=== PATIENT | male | born 1935 | race Hispanic/Latino ===

== ENCOUNTER 2016-12-12 10:18 | Day surgery (SDC) | payer MEDICARE ==
--- NOTE | 2016-12-11 12:58 | Anesthesia Consultation ---
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 PATIENT STABLE FOR SURGERY PER NOTE.
[2016-12-11 13:09] LABS: Basophils % (Auto) 2.3 % (0.0-1.8); Eosinophils % (Auto) 3.2 % (0.0-4.3); Hematocrit 40.5 % (35.5-45.6); Hemoglobin 13.8 gm/dl (11.8-15.2); Mean Corpuscular HGB Conc 34 % (32-34); Mean Corpuscular Hemoglobin 33 pg (28-32); Mean Corpuscular Volume 95 fl (84-94); Platelet Count 231 K/mm3 (140-440); Red Blood Count 4.25 M/mm3 (3.65-5.03); Red Cell Distribution Width 14.2 % (13.2-15.2); White Blood Count 6.7 K/mm3 (4.5-11.0)
[2016-12-11 13:39] LABS: Alanine Aminotransferase 30 units/L (7-56); Albumin 3.8 g/dL (3.9-5); Albumin/Globulin Ratio 1.5 %; Alkaline Phosphatase 59 units/L (35-129); Anion Gap 16 mmol/L; BUN/Creatinine Ratio 25.71; Bilirubin,Total 0.8 mg/dL (0.1-1.2); Blood Urea Nitrogen 18 mg/dL (9-20); Calcium 9.1 mg/dL (8.4-10.2); Carbon Dioxide 27 mmol/L (22-30); Chloride 104.5 mmol/L (98-107); Glucose 104 mg/dL (75-100); Potassium 3.8 mmol/L (3.6-5.0); Sodium 144 mmol/L (137-145); Total Protein 6.3 g/dL (6.3-8.2)
[~2016-12-12 10:18] MED LIST: ANCEF/STERILE WATER 2 GM/20 ML IV NR; NACL 0.9% 1000 ML 1,000 ML IV SCH; PEPCID PO NR
[2016-12-12] MEDS ORDERED: DIPRIVAN 10 MG/ML IV ONE (11:56)
[2016-12-12] MEDS ORDERED: XYLOCAINE MPF 2% ONE (11:56)
[2016-12-12] MEDS ORDERED: SUBLIMAZE ONE (11:56)
[2016-12-12] MEDS ORDERED: ePHEDrine SULFATE ONE (12:40)
[2016-12-12] MEDS ORDERED: NEO SYNEPHRINE ONE (12:40)
[2016-12-12] MEDS ORDERED: WATER FOR IRRIG STERILE IR ONE (13:23)
[2016-12-12] MEDS ORDERED: NACL 0.9% 1000 ML IR ONE (13:24)
--- NOTE | 2016-12-12 15:39 | Post Operative Note ---
Pre-op diagnosis: prostate cancer Post-op diagnosis: same Findings: as above Procedure: cysto cryoablation prostate Anesthesia: GETA Surgeon: DULCE ALEXANDER Estimated blood loss: minimal Pathology: none Condition: stable Disposition: PACU
--- NOTE | 2016-12-12 15:41 | Discharge Summary ---
Short Stay Discharge Plan Activity: other (mo straining ) Weight Bearing Status: Full Weight Bearing Diet: low fat, low cholesterol, low salt Special Instructions: other (inc fluids ) Durable Medical Equipment Needed Upon Discharge: other (home with [employer] ) Follow up with: ANNMARIE BENDER MD [Primary Care Provider] - 7 Days DULCE ALEXANDER MD [Staff Physician] - 7 Days
--- NOTE | 2016-12-12 15:56 | Anesthesia Day of Surgery ---
Anesthesia Day of Surgery - Day of Surgery Patient Examined: Yes Patient H&P Reviewed: Yes Patient is NPO: Yes
--- NOTE | 2016-12-12 15:57 | Post Anesthesia Evaluation ---
- Post Anesthesia Evaluation Patient Participated: Yes Airway Patent: Yes Stable Respiratory Function: Yes Nausea/Vomiting: No Temp > 96.8F: Yes Pain Manageable: Yes Adequeate Hydration: Yes Anesthesia Complications: No Block Receding Appropriately: Not Applicable Patient on Ventilator: No
[2016-12-12] MEDS ORDERED: SUBLIMAZE IV ONE ×2 (16:01→16:02)
[2016-12-12 16:25] VITALS: BP 160/82
--- NOTE | 2016-12-13 00:38 | Operative Report ---
PREOPERATIVE DIAGNOSIS: Prostate cancer, right lobe. POSTOPERATIVE DIAGNOSES: Prostate cancer, right lobe. PROCEDURE: Cryoablation of prostate, cystoscopy. SURGEON: Jamie Dodson MD ANESTHESIA: General. FINDINGS: This is a gentleman with prostate cancer, now presents for treatment. All risks and complications were discussed. DESCRIPTION OF PROCEDURE: The patient was brought to the operating room and placed on the operating table. Following induction of anesthesia, placed in lithotomy position, prepped and draped in usual sterile fashion. A Montgomery catheter was placed and the ultrasound was placed and good visualization of prostate was obtained. The gland was shrunk down from the hormones down to about 35-36 grams. We focused on the right side where the cancer was. At this point, once the ultrasound was in good position, we placed probes 1 and 2 and ____ temperature probe as well as the external sphincter probe. Then, probes 5 and 6 and 3 and 4 were placed. Excellent placement well away from the urethra was obtained. The patient tolerated the procedure well. We checked in both images, measurement in length was from 3.5-4 cm. The patient tolerated the procedure well. It should be noted prior to placing any probes, the probes were checked to be sure they were functioning correctly. At this point, the catheter was removed and flexible cystoscopy showed no urethral injury, no probes in the urethra or bladder neck. A rigid wire was placed and the heat urethral protector was placed in good position and functioning well. This was secured with a Elva. Once again, we checked all the probes, we checked the warmer and everything was in good position and there we began to freeze. The first freeze was carried out, probes 1 and 2 for approximately 4 minutes, then 3 and 4 and then 5 and 6. We had an excellent ice ball on both freezes #1 and #2. After the first freeze, first thaw was carried out and a second freeze was carried out. ____ did not drop below about 20 and again this was probed closer to the rectum. We had excellent ice formation and a second thaw was carried out 20 minutes and a Montgomery catheter was then placed. The patient tolerated the procedure well. We placed 2 small sutures for one of the probes was oozing and the patient was brought to recovery in stable condition. JOB# [id number] BRYCE/MIGDALIA
== END 2016-12-12 20:10 | disposition home or self-care (01) ==
LOC: OR 10:18
PROVIDERS: ATTEND Urology
DX: C61 Malignant neoplasm of prostate (principal); I25.10 Atherosclerotic heart disease of native coronary artery without angina pectoris; I10 Essential (primary) hypertension; I25.2 Old myocardial infarction; F03.90 Unspecified dementia, unspecified severity, without behavioral disturbance, psychotic disturbance, mood disturbance, and anxiety; E66.9 Obesity, unspecified; Z68.30 Body mass index [BMI] 30.0-30.9, adult; E78.00 Pure hypercholesterolemia, unspecified; Z87.891 Personal history of nicotine dependence; Z98.49 Cataract extraction status, unspecified eye; Z86.73 Personal history of transient ischemic attack (TIA), and cerebral infarction without residual deficits
CPT/HCPCS: 36415; 55873; 80053; 85025; C2618; J0690; J2704; J3010; J7030; J2370

== ENCOUNTER 2017-01-14 13:21 | Outpatient (CLI) | payer MEDICARE ==
--- NOTE | 2017-01-14 17:18 | XRay Report ---
ABDOMINAL SERIES: History: Abdominal pain, constipation. Erect chest film shows no acute or significant changes involving the heart or lung dunn. There is no evidence of free air beneath the diaphragms. The gas pattern within the abdomen is unremarkable. There is no evidence of bowel dilatation, significant air-fluid levels, or masses. The psoas margins are adequately visualized. IMPRESSION: Unremarkable abdominal series.
== END 2017-01-14 13:22 | disposition home or self-care (01) ==
LOC: XRAY 13:21
DX: K59.00 Constipation, unspecified (principal)
CPT/HCPCS: 74022

== ENCOUNTER 2019-01-01 11:00 | Outpatient (CLI) | payer MEDICARE ==
--- NOTE | 2019-01-01 13:37 | Fluoroscopy Report ---
FLUOROSCOPY GASTROGRAFIN ENEMA History: Therapeutic enema for severe constipation. Findings: 750 cc of Gastrografin contrast agent was administered into the colon via a rectal tube. 13 fluoroscopic images were captured. There are scattered filling defects in the colon consistent with fecal matter. No severe constipation is evident. No gross colonic lesion although this is not a diagnostic exam. Impression: Successful therapeutic Gastrografin enema.
== END 2019-01-01 11:01 | disposition home or self-care (01) ==
LOC: FLUORO 11:00
PROVIDERS: ATTEND Internal Medicine Gastroenterology
DX: K59.00 Constipation, unspecified (principal); E78.00 Pure hypercholesterolemia, unspecified; E66.9 Obesity, unspecified
CPT/HCPCS: 74270; Q9963